=== PATIENT | male | born 2005 | race African-American/Black ===

== ENCOUNTER 2025-01-01 13:55 | Emergency (ER) | payer OTHER ==
[~2025-01-01] VITALS: Ht 177.8 cm; Wt 83.8 kg
[2025-01-01 16:19] VITALS: BP 122/83; TEMP 98.7; O2SAT 99
== END 2025-01-01 16:25 | disposition home or self-care (01) ==
LOC: M ED 13:55
DX: R07.89 Other chest pain (principal)